=== PATIENT | male | born 1965 | race Caucasian/White ===

== ENCOUNTER 2022-09-04 21:35 | Emergency (ER) | payer OTHER ==
[2022-09-04 21:39] VITALS: BP 150/89; PULSE 90; RESP 18; TEMP 98; BMI 23.0
[2022-09-04] MEDS ORDERED: IBUPROFEN 600 MG TABLET (FP) PO ONE ×2 (22:19→22:27)
[2022-09-04] MEDS ORDERED: METHOCARBAMOL 500 MG TABLET PO ONE (22:20)
[2022-09-04] MEDS ORDERED: METHOCARBAMOL 500 MG TABLET ONE (22:27)
== END 2022-09-04 22:48 | disposition home or self-care (01) ==
LOC: JERFT 21:35
DX: M25.551 Pain in right hip (principal); M79.605 Pain in left leg; V89.2XXA Person injured in unspecified motor-vehicle accident, traffic, initial encounter; Y92.9 Unspecified place or not applicable
CPT/HCPCS: 73502-TC-RT-FY; 73590-TC-LT-FY; 99284-25